=== PATIENT | male | born 1975 | race Caucasian/White ===

== ENCOUNTER 2021-09-15 13:09 | Emergency (ER) | payer BC, OTHER, SELFPAY ==
[2021-09-15] VITALS (8 sets, daily range): BP systolic 134–166; BP diastolic 99–113; PULSE 90–122; RESP 13–20; TEMP 36.8–36.9; O2SAT 94–99; BMI 28.0
--- NOTE | 2021-09-15 13:08 | ECG_ITS ---
APPROVED REPORT Exam: Resting ECG HR:109 bpm ECG Measurements Heart Rate 109 AXES KS 182 P 42 QRSd 84 QRS 13 QT 336 T 39 QTc 452 Conclusion Sinus tachycardia Otherwise normal ECG Electronically signed by : Tylor Herbert MD 09/16/2021 12:17:01
--- NOTE | 2021-09-15 13:17 | XR_ITS ---
PROCEDURE: XR CHEST 2V CLINICAL HISTORY: chest pain COMPARISON: CR CXR CHEST(2 VIEWS-NOT PORTABLE) from 12/30/2015 CR [id number] XR ribs LT min 3V w CXR1V from 02/16/2018 FINDINGS: The cardiomediastinal silhouette and pulmonary vascularity are within normal limits. The lungs are clear without infiltrates, suspicious nodules, or pleural effusions. No acute bony abnormalities. IMPRESSION: No acute findings. Dictated by: Angel Luis Galeano MD 09/15/2021 17:02 Angel Luis Galeano MD in [place] 09/15/2021 17:02
[2021-09-15 13:28] LABS: Basophils # 0.2 K/mm3 (0-0.2); Basophils % 2.3 % (0.1-2.0); Eosinophils # 0.3 K/mm3 (0.0-0.4); Eosinophils % 3.4 % (0.1-12.0); Hematocrit 41.4 % (42.0-52.0); Hemoglobin 14.1 g/dL (14.1-18.0); Lymphocytes # 3.2 K/mm3 (0.7-4.5); Lymphocytes % 36.2 % (10-50); Mean Corpuscular HGB Conc 34.2 g/dL (31.8-35.4); Mean Corpuscular Hemoglobin 29.5 pg (27.0-31.2); Mean Corpuscular Volume 86.2 fl (80-94); Mean Platelet Volume 9.7 fl (7.4-10.4); Monocytes # 0.5 K/mm3 (0.1-1.0); Monocytes % 5.3 % (1.7-9.3); Neutrophils # 4.6 K/mm3 (1.8-7.8); Neutrophils % 52.8 % (37.0-80.0); Platelet Count 360 K/mm3 (142-424); Red Blood Count 4.79 M/mm3 (4.60-6.20); Red Cell Distribution Width 12.6 % (11.5-17.5); White Blood Count 8.7 K/mm3 (4.8-10.8)
[2021-09-15 13:29] LABS: Anion Gap 10.6 mEq/L (5-15); Blood Urea Nitrogen 9 mg/dl (9-20); Calcium 8.9 mg/dl (8.4-10.2); Carbon Dioxide 30 mmol/L (22.0-30.0); Chloride 101 mmol/L (98-107); Creatinine Clearance Estimated 129 mL/min (50-200); Estimated Glomerular Filt Rate 80 ml/min (>60); GFR (African American) 97 ML/MIN (>60); Glucose 110 mg/dl (74-100); Potassium 3.6 mmoL/L (3.5-5.1); Sodium 138 mmol/L (136-145)
--- NOTE | 2021-09-15 13:38 | HMH.EDGENADL ---
ED Disposition Clinical Impression: Chest pain, Atypical chest pain Disposition: Home, Self-Care Condition on Discharge: Good Instructions: DI for Atypical Chest Pain Referrals: Provider,Referral, [Primary Care Provider] - - Critical Care Critical Care Time: No Attestation: On 09/15/21, the high probability of a clinically significant, sudden or life threatening deterioration of the following system(s) required my full and direct attention, intervention and personal management. The time I documented below is in addition to time spent performing reported procedures but includes the following listed in this critical care notation. Medical Decision Making - Oumar Inquiry Pt receiving controlled substance: Yes Oumar was queried for this patient: Yes Risks and benefits of using a controlled substance: were discussed with pt by me Vital Signs: 09/15/21 13:08 Temperature 98.5 F Temperature Source Oral Pulse Rate [Left Radial] 117 H Respiratory Rate 19 Blood Pressure [Right Arm] 151/106 H Blood Pressure Mean [Right Arm] 121 Blood Pressure Source [Right Arm] Automatic Cuff Blood Pressure Position [Right Arm] Sitting 02 Sat by Pulse Oximetry 96 Oxygen Delivery Method Room Air - Lab Data Lab Results 09/15/21 13:11: WBC 8.7, RBC 4.79, Hgb 14.1, Hct 41.4 L, MCV 86.2, MCH 29.5, MCHC 34.2, RDW 12.6, Plt Count 360, MPV 9.7, Neut % (Auto) 52.8, Lymph % (Auto) 36.2, [place] % (Auto) 5.3, Eos % (Auto) 3.4, Baso % (Auto) 2.3 H, Neut # (Auto) 4.6, Lymph # (Auto) 3.2, [place] # (Auto) 0.5, Eos # (Auto) 0.3, Baso # (Auto) 0.2 09/15/21 13:11: Troponin I < 0.01 09/15/21 13:11: Sodium 138, Potassium 3.6, Chloride 101, Carbon Dioxide 30, Anion Gap 10.6, BUN 9, Creatinine 1.00, Estimated Creat Clear 129, Estimated GFR 80, Est GFR ( Amer) 97, Glucose 110 H, Calcium 8.9 09/15/21 13:11: D-Dimer 0.46 Result diagrams: 09/15/21 13:11 09/15/21 13:11 Orders (Tests/Meds): ED MEDICATIONS Discontinued Medications Generic Name Dose Route Start Last Admin Trade Name Rosa PRN Reason Stop Dose Admin Hydroxyzine Pamoate 25 mg 09/15/21 13:34 09/15/21 13:53 Hydroxyzine Pamoate 25mg Capsule PO 09/15/21 13:35 25 mg ONCE ONE Administration Lactated Ringer's 2,470 mls @ 1,235 mls/hr 09/15/21 13:43 09/15/21 13:54 Lactated Ringer's 1000 Ml Bag 30 ml/kg infuse over 2 hr (2470 ml) 09/15/21 15:42 1,235 mls/hr IV Administration .Q2H ONE Ketorolac Tromethamine 15 mg 09/15/21 13:34 09/15/21 13:53 Ketorolac 30mg/Ml Vial IV 09/15/21 13:35 15 mg ONCE ONE Administration Lorazepam 1 mg 09/15/21 13:37 09/15/21 13:53 Lorazepam 1mg Tablet PO 09/15/21 13:38 1 mg ONCE ONE Administration ORDERS Category Date Time Status XR chest 2V Stat Exams 09/15/21 13:17 Taken Troponin I Q3H Lab 09/15/21 16:30 Ordered Troponin I Q3H Lab 09/15/21 19:30 Ordered Medical Decision Narrative: DDx includes but not limited to ACS, thoracic mass, PE, aortic dissection, toxic ingestion. HDS, NAD, well appearing, neurovascularly intact in all extremities. Good pulses and warm throughout. GCS 15. EKG with sinus tachycardia, no acute ischemic changes. Troponin wnl. Wells low-med risk, d dimer within normal limits. Based on ADD-RS aortic dissection rule, d dimer <500 ng/mL, less likely acute aortic dissection, does not require CTA in this setting. CXR without large PTX, focal opacity, large effusion. Given fluid bolus IV, toradol, ativan (for anxiety). Tachycardia improved. Remains HDS, pain controlled. Tolerating PO. Given ED return precautions. General Adult HPI - General Chief complaint: Chest Pain Stated complaint: chest pain Time Seen by Provider: 09/15/21 13:30 Mode of Arrival: EMS Limitations: No Limitations Description of Symptoms (Recalled from ER Triage Doc. by RN): c/o chest pain that travels into his left arm with numbness, feeling of pressure/tightness in chest. Per endoscopy support specialist pt walked up to them
[2021-09-15 13:43] LABS: Troponin I < 0.01 ng/ml (0.00-0.034)
[2021-09-15 13:49] LABS: D-Dimer 0.46 ug/mL (0.0-0.5)
--- NOTE | 2021-09-15 14:00 | PC.NURSE ---
pt to radiology at this time
== END 2021-09-15 16:11 | disposition home or self-care (01) ==
PROVIDERS: Emergency Provider Student in an Organized Health Care Education/Training Program
DX: R07.9 Chest pain, unspecified (principal); F17.210 Nicotine dependence, cigarettes, uncomplicated
CPT/HCPCS: 71046; 80048; 84484; 85025; 85378; 93005; 96366; 96374; 99283

== ENCOUNTER 2022-05-02 03:19 | Emergency (ER) | payer BC, OTHER, SELFPAY ==
--- NOTE | 2022-05-02 03:17 | ECG_ITS ---
APPROVED REPORT Exam: Resting ECG HR:98 bpm ECG Measurements Heart Rate 98 AXES HI 179 P 54 QRSd 85 QRS 66 QT 331 T 34 QTc 386 Conclusion SINUS RHYTHM NORMAL ECG UNCONFIRMED REPORT Electronically signed by : Tylor Herbert MD 05/04/2022 14:07:35
[2022-05-02 03:19] VITALS: BP 175/116; PULSE 97; RESP 20; TEMP 37.1; O2SAT 99; BMI 26.2
--- NOTE | 2022-05-02 03:25 | HMH.EDGENADL ---
ED Disposition Clinical Impression: Paresthesia Disposition: Home, Self-Care Condition on Discharge: Fair Instructions: DI for Numbness/Tingling Additional Instructions: Follow-up with your primary care physician in approximately 1 week or so. Your glucose today was 120. This is not high enough to say that you are diabetic. However it is a little bit higher than normal. The remainder of your work-up in the emergency department did not reveal any life-threatening or dangerous findings. Please continue taking all medications as prescribed. Return to the emergency department if you feel worse in any way. - Critical Care Critical Care Time: No Attestation: On , the high probability of a clinically significant, sudden or life threatening deterioration of the following system(s) required my full and direct attention, intervention and personal management. The time I documented below is in addition to time spent performing reported procedures but includes the following listed in this critical care notation. Medical Decision Making - Oumar Inquiry Pt receiving controlled substance: No Vital Signs: 05/02/22 03:19 Temperature 98.8 F Temperature Source Oral Pulse Rate [Right] 97 H Respiratory Rate 20 Blood Pressure [Right Arm] 175/116 H Blood Pressure Mean [Right Arm] 135 Blood Pressure Source [Right Arm] Automatic Cuff 02 Sat by Pulse Oximetry 99 Oxygen Delivery Method Room Air - Lab Data Lab results reviewed: Yes: I reviewed the patient's lab results. Lab Results 05/02/22 03:21: WBC 8.7, RBC 5.08, Hgb 15.3, Hct 46.3, MCV 91.1, MCH 30.1, MCHC 33.0, RDW 12.8, Plt Count 294, MPV 9.6, Neut % (Auto) 48.4, Lymph % (Auto) 33.0, [place] % (Auto) 9.0, Eos % (Auto) 6.6, Baso % (Auto) 3.0 H, Neut # (Auto) 4.2, Lymph # (Auto) 2.9, [place] # (Auto) 0.8, Eos # (Auto) 0.6 H, Baso # (Auto) 0.3 H 05/02/22 03:21: Sodium 137, Potassium 3.7, Chloride 103, Carbon Dioxide 26, Anion Gap 11.7, BUN 10, Creatinine 0.90, Estimated Creat Clear 138, Estimated GFR 91, Est GFR ( Amer) 110, Glucose 120 H, Calcium 9.3 The patient is ABG shows a pH of 7.428. CO2 and PO2 are normal. Lactic acid is normal. Result diagrams: 05/02/22 03:21 05/02/22 03:21 Orders (Tests/Meds): ORDERS Category Date Time Status ABG [Arterial Blood Gas] Stat RT 05/02/22 03:26 Ordered - ECG Data Tracing #1 I reviewed this ECG and interpreted as documented below: EKG was performed at 3:17 AM. Shows a normal sinus rhythm with a ventricular rate of 98 bpm. The axes are normal, the intervals are normal. This is a normal EKG. Normal Sinus Rhythm: Yes Medical Decision Narrative: The patient's work-up in the emergency department did not reveal any life-threatening or dangerous causes for the patient's symptoms. The patient's electrolytes are normal. There are no focal deficits. He seems somewhat anxious. He states that his symptoms have improved since he is arrived in the emergency department. I feel the patient can be safely discharged home. His glucose was 120. This is mildly elevated. However, it is not high enough to determine that the patient is diabetic. I advised the patient of this and recommended to follow-up with his primary care physician at his earliest convenience to check for hemoglobin A1c levels. General Adult HPI - General Stated complaint: weakness Time Seen by Provider: 05/02/22 03:25 - History of Present Illness HPI narrative: The patient presents to the emergency department accompanied by his complaining of tingling in all 4 extremities in addition to j luis-oral tingling. He also complains of being short of breath. He has a history of anxiety. He states that this does not feel like his usual panic attacks. - Related Data Home Medications Medication Instructions Recorded Confirmed Escitalopram Oxalate [Lexapro] 10 mg PO DAILY 05/02/22 05/02/22 Trazodone HCl [Desyrel 50mg tablet] 25 mg PO HS 05/02/22
--- NOTE | 2022-05-02 03:28 | PC.NURSE ---
Called respiratory for ABG
[2022-05-02 03:34] LABS: Basophils # 0.3 K/mm3 (0-0.2); Eosinophils # 0.6 K/mm3 (0.0-0.4); Eosinophils % 6.6 % (0.1-12.0); Hematocrit 46.3 % (42.0-52.0); Hemoglobin 15.3 g/dL (14.1-18.0); Lymphocytes # 2.9 K/mm3 (0.7-4.5); Mean Corpuscular Hemoglobin 30.1 pg (27.0-31.2); Mean Corpuscular Volume 91.1 fl (80-94); Mean Platelet Volume 9.6 fl (7.4-10.4); Monocytes # 0.8 K/mm3 (0.1-1.0); Neutrophils # 4.2 K/mm3 (1.8-7.8); Neutrophils % 48.4 % (37.0-80.0); Platelet Count 294 K/mm3 (142-424); Red Blood Count 5.08 M/mm3 (4.60-6.20); Red Cell Distribution Width 12.8 % (11.5-17.5); White Blood Count 8.7 K/mm3 (4.8-10.8)
[2022-05-02 03:37] LABS: Chloride 103 mmol/L (98-107); Potassium 3.7 mmoL/L (3.5-5.1); Sodium 137 mmol/L (136-145)
[2022-05-02 03:40] LABS: Anion Gap 11.7 mEq/L (5-15); Blood Urea Nitrogen 10 mg/dl (9-20); Carbon Dioxide 26 mmol/L (22.0-30.0); Creatinine Clearance Estimated 138 mL/min (50-200); Estimated Glomerular Filt Rate 91 ml/min (>60); GFR (African American) 110 ML/MIN (>60)
[2022-05-02 03:41] LABS: Glucose 120 mg/dl (74-100)
[2022-05-02 03:46] LABS: Calcium 9.3 mg/dl (8.4-10.2)
[2022-05-02 03:57] VITALS: BP 146/100; PULSE 87; RESP 19; TEMP 37; O2SAT 99
== END 2022-05-02 04:02 | disposition home or self-care (01) ==
PROVIDERS: Emergency Provider Emergency Medicine; PCP Nurse Practitioner Family
DX: R20.2 Paresthesia of skin (principal); R53.1 Weakness; R06.02 Shortness of breath; F41.9 Anxiety disorder, unspecified; Z72.0 Tobacco use
CPT/HCPCS: 80048; 85025; 93005; 99283

== ENCOUNTER 2024-04-02 09:01 | Emergency (ER) | payer BC, OTHER, SELFPAY ==
[2024-04-02 09:02] VITALS: BP 187/115; PULSE 81; RESP 20; TEMP 36.6; O2SAT 100; BMI 25.4
--- NOTE | 2024-04-02 09:13 | ECG_ITS ---
APPROVED REPORT Exam: Resting ECG HR:76 bpm ECG Measurements Heart Rate [address] 163 P 47 QRSd 96 QRS 48 QT 368 T 28 QTc 398 Conclusion SINUS RHYTHM WITH MARKED SINUS ARRHYTHMIA BORDERLINE ECG Electronically signed by : KERI THORPE, 04/02/2024 12:21:26
--- NOTE | 2024-04-02 09:24 | HMH.EDGENADL ---
Discharge Plan Disposition Patient Disposition: Home, Self-Care Prescriptions Prescriptions: New chlordiazepoxide HCl 25 mg capsule See Rx Instructions .ROUTE .COMPLEX Qty: 20 0RF Rx Instructions: 50mg of chlordiazepoxide every 8 hours for two days, then decrease to 25mg every 8 hours for another two days followed by 25mg at night for 2 days. No Action lisinopril 10 mg tablet 10 mg PO DAILY atorvastatin 40 mg tablet 40 mg PO pantoprazole 20 mg tablet,delayed release (DR/EC) PO loratadine 10 mg tablet 10 mg PO DAILY azithromycin [Zithromax Z-Terrell] 250 mg tablet See Rx Instructions PO .COMPLEX 5 Days Qty: 6 0RF Rx Instructions: For 250 mg dose pack: take 500 mg today (day 1), then 250 mg for 4 days (days 2-5) PO codeine-guaifenesin [Guaifenesin AC] 10-100 mg/5 mL liquid 10 ml PO Q4-6H PRN (Reason: cough) Qty: 118 0RF escitalopram oxalate 10 mg tablet 20 mg PO DAILY trazodone 50 mg tablet 25 mg PO HS PRN (Reason: sleep) Referrals Follow up/Referrals: Vale De La O APRN [Primary Care Provider] - See instructions Activity Restrictions/Add. Instructions Additional Instructions/Restrictions: At this time it was felt you are safe to be discharged home. If new or worsening symptoms please do not hesitate to return the emergency department. Please follow-up with [facility] for your alcohol withdrawal ongoing care. Please take your medication as prescribed and do not combine your chlordiazepoxide with other sedating medications. Clinical Impressions Clinical Impression: Alcohol withdrawal Discharge ED Provider: Be Macias General Adult HPI General Chief complaint: Alcohol Stated complaint: lightheaded, shakey Time Seen by Provider: 04/02/24 09:03 Mode of Arrival: Ambulatory Source of Information: Patient Limitations: No Limitations Description of Symptoms (Recalled from ER Triage Doc. by RN): pt presents to ED today with c/o shakiness and dizziness. pt reports that he stopped drinking on . pt states he drinks 8 beers daily. pt reports cold sweats and chills. pt does take a pill to help him with his withdrawls, but does not remember the name. History of Present Illness HPI narrative: Patient is a 48-year-old male with past medical history of anxiety, hypertension who presents emergency department for symptoms related to ethanol withdrawal. Patient has been drinking approximately 8 beers a day since 2001, 2 years ago he had a 6-month stretch of sobriety. Since then he has been drinking 8 beers a day and hitting a vape pen daily . He quit both of these on and initially took an unknown medication which was previously prescribed for withdrawal however has not taken it in the last 48 hours. No vomiting, no hallucinations, has never had seizures before. No other acute complaints at this time. Related Data Home Medications Medication Instructions Recorded Confirmed atorvastatin 40 mg tablet 40 mg PO 08/30/23 08/30/23 escitalopram oxalate 10 mg tablet 20 mg PO DAILY ptsd 08/30/23 08/30/23 lisinopril 10 mg tablet 10 mg PO DAILY 08/30/23 08/30/23 loratadine 10 mg tablet 10 mg PO DAILY 08/30/23 08/30/23 pantoprazole 20 mg tablet,delayed mg PO 08/30/23 08/30/23 release trazodone 50 mg tablet 25 mg PO HS PRN sleep 08/30/23 08/30/23 Previous Rx's Medication Instructions Recorded azithromycin 250 mg tablet See Rx Instructions PO .COMPLEX 5 08/30/23 (Zithromax Z-Terrell) days #6 tabs codeine 10 mg-guaifenesin 100 mg/5 10 ml PO Q4-6H PRN cough #118 mL 08/30/23 mL oral liquid (Guaifenesin AC) chlordiazepoxide HCl 25 mg capsule See Rx Instructions .Route 04/02/24 .COMPLEX ETOH Withdrawal #20 caps Allergies Allergy/AdvReac Type Severity Reaction Status Date / Time No Known Allergies Allergy Verified 08/30/23 15:15 [facility] Disclaimer: The information contained in this section may have been updated after the patient was seen, as this information can be updated by other users. Medical History (Updated 04/02/24 @ 10:56 by Be Macias MD) Post traumatic stress disorder (PTSD) Elevated random blood glucose level Hypertension Hyperlipidemia Family History (Updated 08/30/23 @ 15:21 by Ruthie Araiza CMA) Family/Other Hyperlipidemia Hypertension Heart attack Coronary artery disease Cancer Diabetes Thyroid disorder Social History (Updated 08/30/23 @ 15:24 by Ruthie Araiza CMA) Smoking Status: Current every day smoker tobacco type: smokeless tobacco alcohol intake: current alcohol intake frequency: 3 or more drinks per day substance use type: other details: vapes canabis current occupational status: employed Travel in the last 8 weeks: None ROS Obtained: Yes Systems reviewed as appropriate & no additional complaints except as documented Physical Exam General General appearance: alert, in no apparent distress and other (In bed with tremor, slight diaphoresis) Head Head exam: atraumatic and normocephalic Eye Eye exam: Present PERRL ENT ENT exam: Present mucous membranes moist Neck Neck exam: Present normal inspection Chest Chest inspection: Present normal inspection and symmetric chest wall rise Respiratory Respiratory exam: Present normal lung sounds bilaterally; Absent respiratory distress Cardiovascular Cardiovascular exam: Present regular rate and normal rhythm Abdominal Exam Abdominal exam: Present soft; Absent tenderness Extremities Exam Extremities exam: Present normal inspection Neurological Exam Neurological exam: Present alert, oriented X3 and CN II-XII intact; Absent motor sensory deficit Psychiatric Psychiatric exam: Present normal affect Skin Skin exam: Present warm and dry Medical Decision Making Oumar Inquiry Pt receiving controlled substance: No Vital Signs: 04/02/24 09:02 04/02/24 09:30 04/02/24 10:00 Temperature 97.9 F Temperature Source Oral Pulse Rate 60 62 Pulse Rate [Left Radial] 81 Respiratory Rate 20 13 9 L Blood Pressure 153/103 H 137/94 H Blood Pressure [Right Arm] 187/115 H Blood Pressure Mean [Right Arm] 139 02 Sat by Pulse Oximetry 100 98 92 L Oxygen Delivery Method Room Air 04/02/24 10:30 Temperature Temperature Source Pulse Rate 66 Pulse Rate [Left Radial] Respiratory Rate 14 Blood Pressure 154/95 H Blood Pressure [Right Arm] Blood Pressure Mean [Right Arm] 02 Sat by Pulse Oximetry 95 Oxygen Delivery Method Lab Data Lab Results 04/02/24 09:26: WBC 5.9, RBC 5.32, Hgb 15.6, Hct 48.0, MCV 90.2, MCH 29.4, MCHC 32.6, RDW 13.5, Plt Count 313, MPV 9.3, Neut % (Auto) 67.6, Lymph % (Auto) 22.5, [place] % (Auto) 5.9, Eos % (Auto) 1.1, Baso % (Auto) 2.9 H, Neut # (Auto) 4.0, Lymph # (Auto) 1.3, [place] # (Auto) 0.4, Eos # (Auto) 0.1, Baso # (Auto) 0.2, Sodium 137, Potassium 3.4 L, Chloride 101, Carbon Dioxide 25, Anion Gap 14.4, BUN 12, Creatinine 1.00, Estimated Creat Clear 115, Estimated GFR 80, Est GFR ( Amer) 97, Glucose 106 H, Calcium 10.2, Magnesium 1.6, Total Bilirubin 1.5 H, AST 47, ALT 43, Alkaline Phosphatase 90, Total Protein 8.5 H, Albumin 4.9, Globulin 3.6 H, Albumin/Globulin Ratio 1.4, Plasma/Serum Alcohol < 10 04/02/24 09:26 04/02/24 09:26 Orders (Tests/Meds): ED MEDICATIONS Discontinued Medications Generic Name Dose Route Start Last Admin Trade Name Freq PRN Reason Stop Dose Admin Diazepam 5 mg 04/02/24 09:24 04/02/24 09:30 Diazepam 10mg/2ml Syringe IV 04/02/24 09:25 5 mg ONCE ONE Administration Lactated Ringer's 1,000 mls @ 999 mls/hr 04/02/24 09:24 04/02/24 09:30 Lactated Ringer's 1000 Ml Bag IV 04/02/24 10:24 999 mls/hr .Q1H1M ONE Administration ORDERS Category Date Time Status CBC w/Auto Diff [Complete Blood Count Auto Diff] Stat Lab 04/02/24 09:26 Completed CMP [Comprehensive Metabolic Panel] Stat Lab 04/02/24 09:26 Completed Ethanol [Ethyl Alcohol] Stat Lab 04/02/24 09:26 Completed MG [Magnesium] Stat Lab 04/02/24 09:26 Completed ECG Data Tracing #1: Independently interpreted by me, rate of 76, rhythm is regular, axis is normal, no ST elevation in anatomical contiguous leads, QTc 398. Medical Decision Narrative: In summary patient is a 48-year-old male past medical history described above who presents emergency department for evaluation of symptoms related to alcohol withdrawal. Patient is hemodynamically stable nontoxic-appearing upon arrival, afebrile. Initial CIWA was 9. Workup screening for electrolyte deficiency will be conducted with hematologic labs. Initial interventions include crystalloid bolus, diazepam. Workup reviewed by me, hematologic labs are nonactionable, no HADLEY or critical electrolyte abnormality. Upon repeat evaluation patient was well-appearing, he does not have a CIWA score that would warrant admission at this time. Given this patient will be discharged with a Librium taper and will follow-up with [facility] on an outpatient basis and was given return precautions. Critical Care Critical Care Time Critical Care Time: No
[2024-04-02 09:30] VITALS: BP 153/103; PULSE 60; RESP 13; O2SAT 98
[2024-04-02] MEDS: LACTATED RINGERS 1000ML 1,000 ML 999 ML IV (09:30)
[2024-04-02] MEDS: diazePAM 10MG/2ML SYRINGE 5 MG IV (09:30)
[2024-04-02 09:41] LABS: Basophils # 0.2 K/mm3 (0-0.2); Basophils % 2.9 % (0.1-2.0); Eosinophils # 0.1 K/mm3 (0.0-0.4); Eosinophils % 1.1 % (0.1-12.0); Hemoglobin 15.6 g/dL (14.1-18.0); Lymphocytes # 1.3 K/mm3 (0.7-4.5); Lymphocytes % 22.5 % (10-50); Mean Corpuscular HGB Conc 32.6 g/dL (31.8-35.4); Mean Corpuscular Hemoglobin 29.4 pg (27.0-31.2); Mean Corpuscular Volume 90.2 fl (80-94); Mean Platelet Volume 9.3 fl (7.4-10.4); Monocytes # 0.4 K/mm3 (0.1-1.0); Monocytes % 5.9 % (1.7-9.3); Neutrophils % 67.6 % (37.0-80.0); Platelet Count 313 K/mm3 (142-424); Red Blood Count 5.32 M/mm3 (4.60-6.20); Red Cell Distribution Width 13.5 % (11.5-17.5); White Blood Count 5.9 K/mm3 (4.8-10.8)
[2024-04-02 09:42] LABS: Chloride 101 mmol/L (98-107)
[2024-04-02 09:43] LABS: Potassium 3.4 mmoL/L (3.5-5.1); Sodium 137 mmol/L (136-145)
[2024-04-02 09:45] LABS: Alanine Aminotransferase 43 U/L (12-78); Aspartate Amino Transferase 47 U/L (17-59); Blood Urea Nitrogen 12 mg/dl (9-20); Creatinine Clearance Estimated 115 mL/min (50-200); Estimated Glomerular Filt Rate 80 ml/min (>60); GFR (African American) 97 ML/MIN (>60)
[2024-04-02 09:46] LABS: Albumin Level 4.9 g/dl (3.5-5.0); Albumin/Globulin Ratio 1.4 (1.1-1.8); Alkaline Phosphatase 90 U/L (38-126); Anion Gap 14.4 mEq/L (5-15); Bilirubin,Total 1.5 mg/dl (0.2-1.3); Calcium 10.2 mg/dl (8.4-10.2); Carbon Dioxide 25 mmol/L (22.0-30.0); Globulin 3.6 g/dL (1.3-3.2); Glucose 106 mg/dl (74-100); Magnesium 1.6 mg/dl (1.6-2.3); Total Protein,Serum 8.5 g/dl (6.3-8.2)
[2024-04-02 10:00] VITALS: BP 137/94; PULSE 62; RESP 9; O2SAT 92
[2024-04-02 10:01] LABS: Ethyl Alcohol < 10 mg/dl (0-10)
--- NOTE | 2024-04-02 10:15 | PC.NURSE ---
pt feeling better , tremors has improved pt resting
[2024-04-02 10:30] VITALS: BP 154/95; PULSE 66; RESP 14; O2SAT 95
[2024-04-02 11:13] VITALS: BP 148/90; PULSE 68; RESP 20; TEMP 36.6; O2SAT 100
== END 2024-04-02 11:04 | disposition home or self-care (01) ==
PROVIDERS: Emergency Provider Emergency Medicine; PCP Nurse Practitioner Family
DX: F10.139 Alcohol abuse with withdrawal, unspecified (principal); R25.1 Tremor, unspecified; F17.290 Nicotine dependence, other tobacco product, uncomplicated; I10 Essential (primary) hypertension; E78.5 Hyperlipidemia, unspecified
CPT/HCPCS: 80053; 80320; 83735; 85025; 93005; 96361; 96374; 99284; G0480; J7120